=== PATIENT | female | born 1985 | race African-American/Black ===

== ENCOUNTER 2017-09-25 19:07 | Emergency (ER) | payer BC ==
[~2017-09-25] VITALS: Ht 162.6 cm; Wt 72.5 kg
[2017-09-25 19:49] VITALS: BP 132/77; PULSE 70; RESP 18; TEMP 98.7; O2SAT 100
[2017-09-25] MEDS ORDERED: PRED50 PO (20:41)
[2017-09-25] MEDS ORDERED: POLY10O EACH EYE (20:41)
--- NOTE | 2017-09-25 20:41 | PD ---
HPI Chief Complaint: Eye Problems/Injury Time Seen by Provider: 20:23 Travel History International Travel<30 days: No Contact w/Intl Traveler<30days: No Traveled to known affect area: No History of Present Illness HPI 32-year-old female here for evaluation of bilateral periorbital edema as well as orbital pruritus. Symptoms started this morning. She tried taking Benadryl and Zyrtec without any improvement in symptoms. She denies pain. No vision changes. She reports a similar episode about a year ago and was evaluated by an emergency department as well as an rehabilitator, and it resolved without any intervention. She has no known allergies. No no new exposures. No tongue or lip swelling. No respiratory difficulty. She does not wear contacts. She is from [place] and will be returning there in the next 1-2 days. [facility] Past Medical History Medical History: Denies Significant Hx ?: Not LMP: UNSURE "SOMETIME LAST YEAR" Past Surgical History Surgical History: No Previous Surgery Social History Alcohol Use: Yes Tobacco Use: No Substance Use: No Allergies-Medications (Allergen,Severity, Reaction): Coded Allergies: No Known Allergies (Unverified , 09/25/17) Reported Meds & Prescriptions Reported Meds & Active Scripts Active No Active Prescriptions or Reported Medications Review of Systems Except as stated in HPI: all other systems reviewed are Neg Physical Exam Narrative GENERAL: Well-developed, well-nourished, comfortable, no apparent distress. SKIN: Focused skin assessment warm/dry. HEAD: Atraumatic. Normocephalic. EYES: Pupils equal, round, 3 mm, reactive to light. EOMI. No proptosis. Moderate periorbital edema without warmth or erythema. Bilateral scleral injection. Corneas are clear bilaterally. Fluorescein stain shows no corneal abrasions. Visual acuity is 20/15 in the left eye, 20/20 in the right eye, 20/ 15 in bilateral eyes. ENT: No nasal bleeding or discharge. Mucous membranes pink and moist. No tongue or lip swelling. No drooling or stridor. CARDIOVASCULAR: Regular rate and rhythm. RESPIRATORY: No accessory muscle use. MUSCULOSKELETAL: No obvious deformities. No clubbing. No cyanosis. No edema. NEUROLOGICAL: Awake and alert. No obvious cranial nerve deficits. Motor grossly within normal limits. Normal speech. PSYCHIATRIC: Appropriate mood and affect; insight and judgment normal. Data Data Last Documented VS Vital Signs Date Time Temp Pulse Resp B/P (MAP) Pulse Ox O2 Delivery O2 Flow Rate FiO2 09/25/17 19:49 98.7 70 18 132/77 (95) 100 Orders Orders Prednisone (Deltasone) (09/25/17 20:45) Polymyxin/Trimethop Opht Soln (Polytrim (09/25/17 20:45) MDM Medical Decision Making Medical Screen Exam Complete: Yes Emergency Medical Condition: Yes Differential Diagnosis Allergic conjunctivitis, iritis, conjunctivitis Narrative Course Vital signs are within normal limits. EYES: Pupils equal, round, 3 mm, reactive to light. EOMI. No proptosis. Moderate periorbital edema without warmth or erythema. Bilateral scleral injection. Corneas are clear bilaterally. Fluorescein stain shows no corneal abrasions. Visual acuity is 20/15 in the left eye, 20/20 in the right eye, 20/ 15 in bilateral eyes. Patient likely has an allergic conjunctivitis. Plan is to start her on prednisone. I encouraged her to continue taking Benadryl every 4-6 hours. I will also start on antibiotic eyedrops. She was advised to follow-up with a primary care physician or an rehabilitator when she returns to [place] this week. I will provide her the name of our on-call rehabilitator if she is still in town to make an appointment within the next 1-2 days. She was advised on when to return to the emergency department. She verbalizes understanding and agreement with plan. Diagnosis Primary Impression: Allergic conjunctivitis Qualified Codes: H10.13 - Acute atopic conjunctivitis, bilateral Referrals: Cheri Grissom MD 1 day [facility] Physician 3 days Additional Instructions: Follow-up with a primary care physician this week. Follow-up with rehabilitator Dr. Grissom or an rehabilitator of your choice this week. Return to the emergency department for worsening symptoms or any other concerns. Scripts Polymyxin B-Trimethoprim Opth Drops (Polytrim Opth Drops) 10,000-0.1 Unit/Ml-% Soln 1 DROP EACH EYE Q6HR for Mgmt Bacterial Infection, #1 BOTTLE 0 Refills Prov: Yuri Man MD 09/25/17 Prednisone (Prednisone) 50 Mg Tab 50 MG PO DAILY for 4 Days, #4 TAB 0 Refills Prov: Yuri Man MD 09/25/17 Disposition: 01 DISCHARGE HOME Condition: Yuri Phipps MD Sep 25, 2017 20:41
[2017-09-25] MEDS ORDERED: POLYMYXIN/TRIMETHOPRIM OPHT SOLN 10 ML BTL EACH EYE ONE (20:45)
[2017-09-25] MEDS ORDERED: predniSONE 50 MG TAB PO ONE (20:45)
== END 2017-09-25 21:20 | disposition home or self-care (01) ==
LOC: NEPD 19:07
DX: H10.13 Acute atopic conjunctivitis, bilateral (principal)
CPT/HCPCS: 99283; J7512